=== PATIENT | female | born 1965 | race Two or more races ===

== ENCOUNTER 2024-08-23 13:16 | Inpatient (IN) | payer OTHER ==
[2024-08-23] VITALS (7 sets, daily range): BP systolic 84–138; BP diastolic 49–84; TEMP 96.9; O2SAT 100
[~2024-08-23] VITALS: Ht 165.1 cm; Wt 68.5 kg
[2024-08-23] MEDS: FENTANYL PF 100MCG/2ML AMPUL IV ONE (13:30)
[2024-08-23] MEDS: MIDAZOLAM HCL 2 MG/2ML VIAL IV ONE (13:30)
[2024-08-23] MEDS: IV NS 0.9% 1,000 ML BAG IV ONE (13:35)
[2024-08-23] MEDS: ETOMIDATE 2 MG/ML VIAL IV ONE (13:39)
[2024-08-23] MEDS: ROCURONIUM BROMIDE 100 MG/10 ML VIAL IV ONE (13:40)
[2024-08-23 13:46] LABS: PLATELET COUNT (AUTO) 61 K/uL (150-450); RED BLOOD CELL COUNT(AUTO) 2.75 MIL/uL (4.0-5.2); RED CELL DISTRIBUTION WIDTH 21.0 % (11.5-15.0); WHITE BLOOD COUNT (AUTO) 7.4 K/uL (4.3-11.0)
[2024-08-23 13:55] LABS: CALCIUM, SERUM 8.9 mg/dL (8.5-10.1); CREATININE 3.1 mg/dL (0.6-1.3); SODIUM SERUM 130 mmol/L (136-145)
[2024-08-23 13:56] LABS: UREA NITROGEN, BLOOD 96 mg/dL (7-18)
[2024-08-23 13:58] LABS: INR 1.34 (0.91-1.10)
[2024-08-23 14:04] LABS: LACTIC ACID 3.7 mmol/L (0.4-2.0)
[2024-08-23 14:09] LABS: ALCOHOL, BLOOD < 10 mg/dL (0-10); ASPARTATE AMINOTRANSFERASE 49 U/L (15-37); TOTAL PROTEIN, SERUM 7.0 g/dL (6.4-8.2)
[2024-08-23] MEDS ORDERED: MIDAZOLAM HCL 2 MG/2ML VIAL ONE (14:22)
[2024-08-23] MEDS ORDERED: FENTANYL PF 100MCG/2ML AMPUL ONE (14:22)
[2024-08-23] MEDS ORDERED: IOHEXOL-300 100 ML VIAL IV ONE ×2 (14:38→14:44)
[2024-08-23] MEDS ORDERED: IV NS 0.9% 250 ML IV ONE (14:39)
[2024-08-23 15:05] LABS: SERUM AMMONIA 433 umol/L (11-32)
[2024-08-23 15:19] LABS: APPEARANCE,URINE CLEAR (CLEAR); BLOOD, URINE NEGATIVE Ery/uL (NEGATIVE); LEUKOCYTE ESTERASE ,URINE NEGATIVE (NEGATIVE); NITRITE, URINE NEGATIVE (NEGATIVE); UGLUCOSE NEGATIVE (NEGATIVE)
[2024-08-23 15:22] LABS: LYMPHOCYTES % (MANUAL) 7 % (16-48); MONOCYTES % (MANUAL) 3 % (0-11.0); NEUTROPHILS % (MANUAL) 90 (42-76); PLATELET ESTIMATE DECREASED
[2024-08-23 15:25] LABS: ADD URINE CULTURE YES; SQUAMOUS EPITHELIAL CELL,UR Many /HPF (None Seen)
[2024-08-23] MEDS ORDERED: KEY,NONCONTROL,TO KEEP IN PYXI 1 EA MC ONE (15:58)
[2024-08-23] MEDS ORDERED: Z GUARD REMEDY 4 OZ OINT TP PRN (16:00)
[2024-08-23] MEDS: CEFEPIME 1 GM in IV D5W 50 ML IV ONE (16:00)
[2024-08-23] MEDS ORDERED: DOSING PER PHARMACY-CEFEPIME IVPB XX PRN (16:00)
[2024-08-23] MEDS ORDERED: MAGNESIUM HYDROXIDE 30 ML UDC PO PRN (16:00)
[2024-08-23] MEDS ORDERED: MIDAZOLAM HCL 100 MG in IV NS 0.9% 80 ML IV PRN (16:00)
[2024-08-23] MEDS ORDERED: MAG HYDROX/AL HYDROX/SIMETH 30 ML UDC PO PRN (16:00)
[2024-08-23] MEDS ORDERED: ONDANSETRON HCL/PF 4 MG/2 ML VIAL IVP PRN (16:00)
[2024-08-23] MEDS: MIDAZOLAM HCL 100 MG in IV NS 0.9% 80 ML IV PRN ×2 (16:17→20:39)
[2024-08-23] MEDS: FENTANYL CITRAT IV 2,500 MCG in IV NS 0.9% 200 ML IV PRN ×3 (16:17→20:37)
[2024-08-23] MEDS ORDERED: ETOMIDATE 2 MG/ML VIAL IV ONE (18:12)
[2024-08-23] MEDS: LACTULOSE 10 G/15 ML UDC (PYXIS) NG SCH (18:45)
[2024-08-23] MEDS: RIFAXIMIN 550 MG TABLET NG SCH (18:45)
[2024-08-24] VITALS (26 sets, daily range): BP systolic 86–111; BP diastolic 43–93; TEMP 96.9–99.6; O2SAT 100
[2024-08-24 04:42] LABS: ASPARTATE AMINOTRANSFERASE 43.0 U/L (15-37); CALCIUM, SERUM 8.7 mg/dL (8.5-10.1); CREATININE 2.8 mg/dL (0.6-1.3); PHOSPHORUS 6.3 mg/dL (2.5-4.9); SODIUM SERUM 135.0 mmol/L (136-145); TOTAL PROTEIN, SERUM 5.9 g/dL (6.4-8.2)
[2024-08-24] MEDS ORDERED: NOREPINEPHRINE 8 MG in IV D5W 242 ML IV PRN (05:00)
[2024-08-24 05:06] LABS: UREA NITROGEN, BLOOD 105.0 mg/dL (7-18)
[2024-08-24 05:13] LABS: RED BLOOD CELL COUNT(AUTO) 2.39 MIL/uL (4.0-5.2); RED CELL DISTRIBUTION WIDTH 21.3 % (11.5-15.0); WHITE BLOOD COUNT (AUTO) 9.1 K/uL (4.3-11.0)
[2024-08-24 05:24] LABS: PLATELET COUNT (AUTO) 36 K/uL (150-450)
[2024-08-24 05:31] LABS: LYMPHOCYTES % (MANUAL) 4 % (16-48); MONOCYTES % (MANUAL) 6 % (0-11.0); NEUTROPHILS % (MANUAL) 90 (42-76); PLATELET ESTIMATE DECREASED
[2024-08-24] MEDS: IV D5/0.45 NACL 1,000 ML IV SCH (07:47)
[2024-08-24] MEDS: PANTOPRAZOLE 40 MG VIAL IV SCH (08:19)
[2024-08-24] MEDS ORDERED: PANTOPRAZOLE 40 MG VIAL IV SCH (09:00)
[2024-08-24 10:30] LABS: INR 1.43 (0.91-1.10)
[2024-08-24] MEDS: ALBUMIN 25% 25 GM in PREMIX 1 EA IV SCH (10:55)
[2024-08-24] MEDS: PROPOFOL 100 ML IV PRN (11:24)
[2024-08-24 11:34] LABS: CREATININE, URINE 81.6 MG/DL (30.0-125.0); URINE TOTAL PROTEIN 53.0 mg/dL (0-11.9)
[2024-08-24 11:39] LABS: ABG BASE EXCESS -3.2 mmol/L (-2.0-3.0); ABG OXYGEN SATURATION 98.1 % (94.0-98.0); ABG PCO2 25.9 mmHg (32.0-45.0); ABG PH 7.492 (7.350-7.450); ABG PO2 135.6 mmHg (83.0-108.0); ABG TOTAL HEMOGLOBIN 8.2 G/dL (12.0-16.0); FRACTIONATED INSPIRED OXYGEN 30.0 %; PEEP,BG 5 cm H2O; SET RATE, BG 16.0; SITE, ABG Other; VT, ABG 450 mL
[2024-08-24 11:40] LABS: URINE SODIUM, RANDOM < 5 mmol/l (40-220)
[2024-08-24] MEDS: CEFEPIME 2 GM in IV D5W 100 ML IV SCH (16:47)
[2024-08-24] MEDS: IV D5/0.45 NACL 1,000 ML IV PRN (20:41)
[2024-08-25] VITALS (36 sets, daily range): BP systolic 92–164; BP diastolic 45–85; TEMP 97.5–99.9; O2SAT 93–100
[2024-08-25 04:12] LABS: ABG BASE EXCESS -5.0 mmol/L (-2.0-3.0); ABG OXYGEN SATURATION 98.4 % (94.0-98.0); ABG PCO2 20.4 mmHg (32.0-45.0); ABG PH 7.536 (7.350-7.450); ABG PO2 148.1 mmHg (83.0-108.0); ABG TOTAL HEMOGLOBIN 7.0 G/dL (12.0-16.0); FRACTIONATED INSPIRED OXYGEN 30.0 %; PEEP,BG 5 cm H2O; SITE, ABG RIGHT RADIAL
[2024-08-25] MEDS: SODIUM BICARBONATE SYR 50 MEQ/50 ML DISP.SYRIN IV ONE (04:30)
[2024-08-25 05:05] LABS: ASPARTATE AMINOTRANSFERASE 39.0 U/L (15-37); CALCIUM, SERUM 9.4 mg/dL (8.5-10.1); CREATININE 3.5 mg/dL (0.6-1.3); PHOSPHORUS 5.5 mg/dL (2.5-4.9); SODIUM SERUM 141.0 mmol/L (136-145); TOTAL PROTEIN, SERUM 6.5 g/dL (6.4-8.2)
[2024-08-25 05:07] LABS: CREATINE KINASE, TOTAL 187.0 U/L (26-192)
[2024-08-25 05:08] LABS: SERUM AMMONIA 260.0 umol/L (11-32); UREA NITROGEN, BLOOD 106.0 mg/dL (7-18)
[2024-08-25 05:21] LABS: RED CELL DISTRIBUTION WIDTH 21.3 % (11.5-15.0); WHITE BLOOD COUNT (AUTO) 11.2 K/uL (4.3-11.0)
[2024-08-25 05:24] LABS: RED BLOOD CELL COUNT(AUTO) 1.93 MIL/uL (4.0-5.2)
[2024-08-25 05:27] LABS: PLATELET COUNT (AUTO) 37 K/uL (150-450)
[2024-08-25 06:03] LABS: EOSINOPHILS % (MANUAL) 2 % (0-4); LYMPHOCYTES % (MANUAL) 4 % (16-48); MONOCYTES % (MANUAL) 5 % (0-11.0); NEUTROPHILS % (MANUAL) 90 (42-76)
[2024-08-25 06:04] LABS: PLATELET ESTIMATE DECREASED
[2024-08-25] MEDS: ACETAMINOPHEN 650 MG/SUPP.RECT RC PRN (09:19)
[2024-08-25] MEDS: ALBUMIN 25% 25 GM in PREMIX 1 EA IV SCH (09:58)
[2024-08-25] MEDS: RIFAXIMIN 550 MG TABLET PO SCH (13:24)
[2024-08-26] VITALS (39 sets, daily range): BP systolic 92–119; BP diastolic 53–78; TEMP 97–99.4; O2SAT 100
[2024-08-26 05:25] LABS: RED BLOOD CELL COUNT(AUTO) 2.04 MIL/uL (4.0-5.2); RED CELL DISTRIBUTION WIDTH 23.6 % (11.5-15.0); WHITE BLOOD COUNT (AUTO) 8.1 K/uL (4.3-11.0)
[2024-08-26 05:48] LABS: ASPARTATE AMINOTRANSFERASE 30.0 U/L (15-37); CALCIUM, SERUM 9.8 mg/dL (8.5-10.1); CREATININE 3.9 mg/dL (0.6-1.3); PHOSPHORUS 4.9 mg/dL (2.5-4.9); SODIUM SERUM 140.0 mmol/L (136-145); TOTAL PROTEIN, SERUM 6.5 g/dL (6.4-8.2)
[2024-08-26 05:57] LABS: SERUM AMMONIA 70.0 umol/L (11-32); UREA NITROGEN, BLOOD 111.0 mg/dL (7-18)
[2024-08-26 05:59] LABS: PLATELET COUNT (AUTO) 23 K/uL (150-450)
[2024-08-26 06:13] LABS: BASOPHILS % (MANUAL) 0 % (0.0-2.0); EOSINOPHILS % (MANUAL) 0 % (0-4); LYMPHOCYTES % (MANUAL) 6 % (16-48); MONOCYTES % (MANUAL) 11 % (0-11.0); NEUTROPHILS % (MANUAL) 83 (42-76); PLATELET ESTIMATE DECREASED
[2024-08-26] MEDS: ALBUMIN 25% 25 GM in PREMIX 1 EA IV SCH (07:56)
[2024-08-26 08:11] LABS: ABG BASE EXCESS -3.9 mmol/L (-2.0-3.0); ABG OXYGEN SATURATION 98.2 % (94.0-98.0); ABG PCO2 22.5 mmHg (32.0-45.0); ABG PH 7.528 (7.350-7.450); ABG PO2 151.4 mmHg (83.0-108.0); ABG TOTAL HEMOGLOBIN 6.6 G/dL (12.0-16.0); FRACTIONATED INSPIRED OXYGEN 30.0 %; PEEP,BG 5 cm H2O; SET RATE, BG 16.0; SITE, ABG RIGHT RADIAL; VT, ABG 500 mL
[2024-08-26] MEDS: MIDODRINE HCL (5MG) 5 MG TABLET PO SCH (08:25)
[2024-08-26] MEDS: OCTREOTIDE 100 MCG/ML VIAL SQ SCH (08:26)
[2024-08-26] MEDS: THERAHONEY GEL 1.5 OZ TUBE TP SCH (08:28)
[2024-08-26] MEDS ORDERED: PHYTONADIONE INJ 10 MG/1 ML AMPUL SQ SCH (10:30)
[2024-08-26] MEDS: ACETAMINOPHEN 325 MG TABLET PO ONE (11:51)
[2024-08-26] MEDS: LACTULOSE 10 G/15 ML UDC (PYXIS) NG SCH (11:52)
[2024-08-26] MEDS: PHYTONADIONE INJ 10 MG/1 ML AMPUL SQ ONE (12:09)
[2024-08-26 14:25] LABS: RHEUMATOID FACTOR SCREEN NEGATIVE (NEGATIVE)
[2024-08-26 14:28] LABS: IRON, SERUM 46.0 ug/dl (50-175)
[2024-08-27] VITALS (39 sets, daily range): BP systolic 92–119; BP diastolic 54–79; TEMP 98.1–98.7; O2SAT 100
[2024-08-27 01:08] LABS: PTH, INTACT 114 pg/mL (15-65)
[2024-08-27 04:11] LABS: RED BLOOD CELL COUNT(AUTO) 2.07 MIL/uL (4.0-5.2); RED CELL DISTRIBUTION WIDTH 21.9 % (11.5-15.0); WHITE BLOOD COUNT (AUTO) 4.8 K/uL (4.3-11.0)
[2024-08-27 04:24] LABS: ASPARTATE AMINOTRANSFERASE 27.0 U/L (15-37); CALCIUM, SERUM 9.9 mg/dL (8.5-10.1); CREATININE 3.6 mg/dL (0.6-1.3); PHOSPHORUS 5.5 mg/dL (2.5-4.9); SODIUM SERUM 140.0 mmol/L (136-145); TOTAL PROTEIN, SERUM 6.4 g/dL (6.4-8.2)
[2024-08-27 04:32] LABS: PLATELET COUNT (AUTO) 23 K/uL (150-450)
[2024-08-27 04:36] LABS: FIBRINOGEN ACTIVITY 130.0 Mg/dL (213-485); INR 1.58 (0.91-1.10); SERUM AMMONIA 39.0 umol/L (11-32)
[2024-08-27 04:48] LABS: UREA NITROGEN, BLOOD 104.0 mg/dL (7-18)
[2024-08-27 05:37] LABS: BASOPHILS % (MANUAL) 0 % (0.0-2.0); EOSINOPHILS % (MANUAL) 2 % (0-4); LYMPHOCYTES % (MANUAL) 6 % (16-48); MONOCYTES % (MANUAL) 10 % (0-11.0); NEUTROPHILS % (MANUAL) 82 (42-76); PLATELET ESTIMATE DECREASED
[2024-08-27 07:07] LABS: HEPATITIS B CORE AB, TOTAL Negative (Negative); HEPATITIS B SURFACE AB (QUAL) Reactive (.)
[2024-08-27 08:07] LABS: FOLIC ACID > 20.0 ng/mL (>3.0); HAPTOGLOBIN <10 mg/dL (33-346); IMMUNOGLOBULIN A, SERUM 277 mg/dL (87-352); IMMUNOGLOBULIN M, SERUM 54 mg/dL (26-217)
[2024-08-27 10:07] LABS: FREE KAPPA LT CHAINS SERUM 106.3 mg/L (3.3-19.4); FREE LAMBDA LT CHAIN SERUM 90.3 mg/L (5.7-26.3); KAPPA/LAMBDA RATIO SERUM 1.18 (0.26-1.65)
[2024-08-27] MEDS ORDERED: DOSING PER PHARMACY-ZOSYN IV 1 EA EA XX PRN (10:30)
[2024-08-27] MEDS: PIPERACILLIN /TAZOBACTAM 2.25 G in IV D5W 50 ML IV SCH (11:25)
[2024-08-27] MEDS: OCTREOTIDE 100 MCG/ML VIAL SQ SCH (17:03)
[2024-08-27] MEDS: MIDODRINE HCL (5MG) 5 MG TABLET PO SCH (17:05)
[2024-08-27] MEDS: ALBUMIN 25% 25 GM in PREMIX 1 EA IV ONE (17:43)
[2024-08-27 20:20] LABS: ABG BASE EXCESS -4.8 mmol/L (-2.0-3.0); ABG OXYGEN SATURATION 98.3 % (94.0-98.0); ABG PCO2 26.2 mmHg (32.0-45.0); ABG PH 7.459 (7.350-7.450); ABG PO2 153.4 mmHg (83.0-108.0); ABG TOTAL HEMOGLOBIN 8.6 G/dL (12.0-16.0); FRACTIONATED INSPIRED OXYGEN 30.0 %; PEEP,BG 5 cm H2O
[2024-08-28] VITALS (44 sets, daily range): BP systolic 94–140; BP diastolic 59–78; TEMP 97.3–98.8; O2SAT 100
[2024-08-28 04:50] LABS: RED BLOOD CELL COUNT(AUTO) 2.32 MIL/uL (4.0-5.2); RED CELL DISTRIBUTION WIDTH 20.7 % (11.5-15.0); WHITE BLOOD COUNT (AUTO) 3.4 K/uL (4.3-11.0)
[2024-08-28 05:10] LABS: ASPARTATE AMINOTRANSFERASE 28.0 U/L (15-37); CALCIUM, SERUM 9.1 mg/dL (8.5-10.1); CREATININE 3.6 mg/dL (0.6-1.3); PHOSPHORUS 5.5 mg/dL (2.5-4.9); SODIUM SERUM 135.0 mmol/L (136-145); TOTAL PROTEIN, SERUM 5.9 g/dL (6.4-8.2)
[2024-08-28 05:20] LABS: FIBRINOGEN ACTIVITY 112.0 Mg/dL (213-485); INR 1.56 (0.91-1.10); UREA NITROGEN, BLOOD 110.0 mg/dL (7-18)
[2024-08-28 05:24] LABS: PLATELET COUNT (AUTO) 22 K/uL (150-450)
[2024-08-28 05:45] LABS: EOSINOPHILS % (MANUAL) 3 % (0-4); LYMPHOCYTES % (MANUAL) 6 % (16-48); MONOCYTES % (MANUAL) 8 % (0-11.0); NEUTROPHILS % (MANUAL) 83 (42-76)
[2024-08-28 05:51] LABS: PLATELET ESTIMATE DECREASED
[2024-08-28 09:28] LABS: ABG BASE EXCESS -5.3 mmol/L (-2.0-3.0); ABG OXYGEN SATURATION 98.3 % (94.0-98.0); ABG PCO2 31.3 mmHg (32.0-45.0); ABG PH 7.397 (7.350-7.450); ABG PO2 148.7 mmHg (83.0-108.0); ABG TOTAL HEMOGLOBIN 8.5 G/dL (12.0-16.0); FRACTIONATED INSPIRED OXYGEN 30.0 %; SITE, ABG LEFT BRACHIAL
[2024-08-28] MEDS: POTASSIUM CL. PREMIX PERIPHER. 50 ML IV SCH (10:49)
[2024-08-28] MEDS: MIDODRINE HCL (5MG) 5 MG TABLET PO SCH (12:40)
[2024-08-28 13:08] LABS: *SPE A/G RATIO 1.9 (0.7-1.7); *SPE ALBUMIN 3.9 g/dL (2.9-4.4); *SPE ALPHA-1-GLOBULIN 0.2 g/dL (0.0-0.4); *SPE ALPHA-2-GLOBULIN 0.3 g/dL (0.4-1.0); *SPE BETA GLOBULIN 0.6 g/dL (0.7-1.3); *SPE GLOBULIN, TOTAL 2.1 g/dL (2.2-3.9); *SPE M-SPIKE Not Observed g/dL (Not Observed); *SPE PROTEIN TOTAL 6.0 g/dL (6.0-8.5); *SPEGAMMA GLOBULIN 1.2 g/dL (0.4-1.8)
[2024-08-28 18:20] LABS: RED BLOOD CELL COUNT(AUTO) 2.82 MIL/uL (4.0-5.2); RED CELL DISTRIBUTION WIDTH 23.1 % (11.5-15.0); WHITE BLOOD COUNT (AUTO) 4.3 K/uL (4.3-11.0)
[2024-08-28 18:26] LABS: PLATELET COUNT (AUTO) 29 K/uL (150-450)
[2024-08-28 19:04] LABS: EOSINOPHILS % (MANUAL) 2 % (0-4); LYMPHOCYTES % (MANUAL) 7 % (16-48); MONOCYTES % (MANUAL) 4 % (0-11.0); NEUTROPHILS % (MANUAL) 87 (42-76); PLATELET ESTIMATE DECREASED
[2024-08-29] VITALS (25 sets, daily range): BP systolic 96–109; BP diastolic 57–78; TEMP 97.8–98.3; O2SAT 100
[2024-08-29 03:43] LABS: PLATELET COUNT (AUTO) 52 K/uL (150-450); RED BLOOD CELL COUNT(AUTO) 2.78 MIL/uL (4.0-5.2); RED CELL DISTRIBUTION WIDTH 23.6 % (11.5-15.0); WHITE BLOOD COUNT (AUTO) 5.4 K/uL (4.3-11.0)
[2024-08-29 04:00] LABS: ASPARTATE AMINOTRANSFERASE 40.0 U/L (15-37); CALCIUM, SERUM 8.9 mg/dL (8.5-10.1); CREATININE 3.9 mg/dL (0.6-1.3); PHOSPHORUS 6.7 mg/dL (2.5-4.9); SODIUM SERUM 136.0 mmol/L (136-145); TOTAL PROTEIN, SERUM 6.1 g/dL (6.4-8.2)
[2024-08-29 04:03] LABS: UREA NITROGEN, BLOOD 108.0 mg/dL (7-18)
[2024-08-29 04:20] LABS: FIBRINOGEN ACTIVITY 156.0 Mg/dL (213-485); INR 1.53 (0.91-1.10)
[2024-08-29 05:12] LABS: BASOPHILS % (MANUAL) 0 % (0.0-2.0); EOSINOPHILS % (MANUAL) 1 % (0-4); LYMPHOCYTES % (MANUAL) 9 % (16-48); MONOCYTES % (MANUAL) 12 % (0-11.0); NEUTROPHILS % (MANUAL) 78 (42-76); PLATELET ESTIMATE DECREASED
[2024-08-29] MEDS: CLOTRIMAZOLE 1% 15 GM TUBE TP SCH (08:34)
[2024-08-29] MEDS: POTASSIUM CL. PREMIX PERIPHER. 50 ML IV SCH (10:36)
[2024-08-29] MEDS: ALBUMIN 25% 25 GM in PREMIX 1 EA IV SCH (15:09)
[2024-08-30] VITALS: BP 83/43; TEMP 98; O2SAT 100
[2024-08-30 01:00] VITALS: BP 101/62; O2SAT 100
[2024-08-30 02:00] VITALS: BP 85/64; O2SAT 100
[2024-08-30 02:30] VITALS: BP 105/66; O2SAT 100
[2024-08-31 06:07] LABS: *SPE A/G RATIO 2.4 (0.7-1.7); *SPE ALBUMIN 3.3 g/dL (2.9-4.4); *SPE ALPHA-1-GLOBULIN 0.1 g/dL (0.0-0.4); *SPE ALPHA-2-GLOBULIN 0.2 g/dL (0.4-1.0); *SPE BETA GLOBULIN 0.4 g/dL (0.7-1.3); *SPE GLOBULIN, TOTAL 1.4 g/dL (2.2-3.9); *SPE M-SPIKE Not Observed g/dL (Not Observed); *SPE PROTEIN TOTAL 4.7 g/dL (6.0-8.5); *SPEGAMMA GLOBULIN 0.6 g/dL (0.4-1.8)
== END 2024-08-30 03:04 | disposition short-term general hospital (02) | DRG 810 ==
LOC: ER 13:19 → ICU 17:03
PROVIDERS: ATTEND Internal Medicine
PROC: 5A1955Z Respiratory Ventilation, Greater than 96 Consecutive Hours (ICD-10-PCS; principal; 2024-08-23)
PROC: 02HV33Z Insertion of Infusion Device into Superior Vena Cava, Percutaneous Approach (ICD-10-PCS; 2024-08-23)
PROC: B548ZZA Ultrasonography of Superior Vena Cava, Guidance (ICD-10-PCS; 2024-08-23)
PROC: 0BH18EZ Insertion of Endotracheal Airway into Trachea, Via Natural or Artificial Opening Endoscopic (ICD-10-PCS; 2024-08-23)
PROC: 30233N1 Transfusion of Nonautologous Red Blood Cells into Peripheral Vein, Percutaneous Approach (ICD-10-PCS; 2024-08-25)
PROC: 30233K1 Transfusion of Nonautologous Frozen Plasma into Peripheral Vein, Percutaneous Approach (ICD-10-PCS; 2024-08-26)
PROC: 30233R1 Transfusion of Nonautologous Platelets into Peripheral Vein, Percutaneous Approach (ICD-10-PCS; 2024-08-26)
PROC: 30233M1 Transfusion of Nonautologous Plasma Cryoprecipitate into Peripheral Vein, Percutaneous Approach (ICD-10-PCS; 2024-08-26)
PROC: 06HY33Z Insertion of Infusion Device into Lower Vein, Percutaneous Approach (ICD-10-PCS; 2024-08-29)
PROC: 5A1D70Z Performance of Urinary Filtration, Intermittent, Less than 6 Hours Per Day (ICD-10-PCS; 2024-08-29)
DX: K91.840 Postprocedural hemorrhage of a digestive system organ or structure following a digestive system procedure (principal); J96.00 Acute respiratory failure, unspecified whether with hypoxia or hypercapnia; D65 Disseminated intravascular coagulation [defibrination syndrome]; K76.7 Hepatorenal syndrome; I81 Portal vein thrombosis; D61.818 Other pancytopenia; K83.1 Obstruction of bile duct; I48.91 Unspecified atrial fibrillation; E86.9 Volume depletion, unspecified; K76.82 Hepatic encephalopathy; N17.0 Acute kidney failure with tubular necrosis; L76.32 Postprocedural hematoma of skin and subcutaneous tissue following other procedure; E87.20 Acidosis, unspecified; K76.6 Portal hypertension; Y83.8 Other surgical procedures as the cause of abnormal reaction of the patient, or of later complication, without mention of misadventure at the time of the procedure; K74.60 Unspecified cirrhosis of liver; E87.6 Hypokalemia; Z95.0 Presence of cardiac pacemaker; N18.9 Chronic kidney disease, unspecified; N39.0 Urinary tract infection, site not specified; Y73.8 Miscellaneous gastroenterology and urology devices associated with adverse incidents, not elsewhere classified; Y92.009 Unspecified place in unspecified non-institutional (private) residence as the place of occurrence of the external cause; S80.12XA Contusion of left lower leg, initial encounter; D68.9 Coagulation defect, unspecified; S30.1XXA Contusion of abdominal wall, initial encounter; E87.1 Hypo-osmolality and hyponatremia; E87.5 Hyperkalemia; D69.59 Other secondary thrombocytopenia; E83.9 Disorder of mineral metabolism, unspecified; D62 Acute posthemorrhagic anemia; R18.8 Other ascites; R57.9 Shock, unspecified; Y73.3 Surgical instruments, materials and gastroenterology and urology devices (including sutures) associated with adverse incidents
CPT/HCPCS: 31720; 36415; 36600; 70450-TC; 71045-TC; 74018; 74178; 76705-TC; 76770-TC; 80048-TC; 80053-TC; 80076-TC; 81001; 82140-TC; 82550-TC; 82570-TC; 82607-TC; 82728-TC; 82784; 82803-TC; 82962-TC; 83010; 83540-TC; 83605-TC; 83615-TC; 83735-TC; 83970; 84100-TC; 84155; 84165; 84300-TC; 84443-TC; 84484-TC; 85025-TC; 85027-TC; 85045-TC; 85385-TC; 85396; 85610-TC; 85730-TC; 86225; 86235; 86334; 86431-TC; 86704; 86706; 86803; 86850-TC; 86880-TC; 87040-TC; 87081-TC; 87086-TC; 87340; 87806; 90935-TC; 93307-TC; 94002; 94002-TC; 94003-TC; 94760-TC; 94762-TC; 94799-TC; 95819-TC; 99082-TC; A4216; A4223; A6253; A6403; G0378; G0480; J0692; J1200; J2250; J2354; J2470; J2543; J3010; J3430; J3480; J3490; J7030; J7050; J7060; P9012; P9016; P9017; P9034; P9047; Q9967